=== PATIENT | female | born 1960 | race Caucasian/White ===

== ENCOUNTER 2025-05-24 08:24 | Emergency (ER) | payer MEDICARE, SELFPAY ==
[2025-05-24 08:25] VITALS: BP 170/96
--- NOTE | 2025-05-24 09:09 | ED.GENMED ---
History of Present Illness
General
Chief Complaint: Dizziness
Source: patient and spouse
Exam Limitations: none
Time Seen by Provider: 05/24/25 08:37
History of Present Illness
History of Present Illness:
Patient woke up in the middle the night. Her had gotten up to go to the bathroom. She woke up to go to the bathroom also. Upon sitting up she had severe vertigo. Also has had some mild vague neck discomfort. No double vision speech
issues or acute neurologic symptoms. Remote history of vertigo although this feels worse. Clearly positional. Worse with putting the head backward or forward. History of a tube in her left ear secondary to ear issues. Has been followed by ENT
for this
Past History
Past History
ED Past Medical History: Other (Lupus)
Review of Systems
Review of Systems
All Other Systems: Not applicable
Constitutional: Denies fever
Respiratory: Reports no symptoms
Cardiac: Reports no symptoms
Neurological: Denies headache, weakness or numbness
Phy Exam
Physical Exam
Physical Exam:
GENERAL: Alert and oriented in no apparent distress
EYE: Orbits normal. Extraocular muscles intact. No obvious nystagmus
NECK: Supple, no carotid bruit
ENT: Pharynx without erythema
CARDIAC: Regular rate and rhythm without any obvious murmurs.
LUNGS: Clear breath sounds,normal
ABDOMEN: Soft, without focal tenderness or distention
NEUROLOGICAL: Alert and oriented , cranial nerves II through XII intact. Speech normal. [id number] normal. Qrzv-[id number]-ifax normal.
SKIN: Warm and dry, no rash or lesion, no discoloration, skin intact.
MUSCULOSKELETAL: No edema,no deformity.Good color
PSYCH: Normal and appropriate interaction.
Course
Orders/Labs/Results
Orders:
Orders
05/24/25 08:55
CT Head & Neck Angio W/wo IV Urgent
Comment:
Reason For Exam: Neck pain/vertigo
Cardiac Monitoring- Treatment ONCE
IV Insert/Care/Rem.- Treatment PRN
0.9% Sodium Chloride 500 ml [Nss] 500 ml IV BOLUS
Meclizine [Antivert] 25 mg PO NOW STA
Pulse Ox/cont/shift [RESP] Stat
Quantity: 1
Physical Therapy Consult [Pt Eval And Treat] Urgent
Treatment: Severe vertigo
Activity Level: Out of Bed-Early Mobility
05/24/25 08:56
Electrocardiogram (*1) Stat
Reason for Study: Other
Other Reason for Exam: neuro symptoms
EKG- Treatment ONCE
05/24/25 09:19
Basic Metabolic Panel Urgent
Complete Blood Count/With Diff Urgent
Abnormal Lab Results
05/24/25
09:19
Hgb 11.4 L g/dL
(12.0-16.0)
Hct 34.7 L %
(37.0-47.0)
MCV 80.1 L fL
(81.0-99.0)
MCH 26.3 L pg
(27.0-31.0)
MCHC 32.9 L g/dL
(33.0-37.0)
RDW 15.1 H %
(11.5-14.5)
Absolute Lymphs (auto) 1.0 L 10^3/uL
(1.2-3.4)
Neutrophils % 82.2 H %
(42.2-75.2)
Lymphocytes % 12.8 L %
(20.5-51.1)
Glucose 128 H mg/dl
(70-99)
05/24/25 09:19
05/24/25 09:19
Vital Signs
Initial and Last Documented VS:
Initial Vital Signs
Temp Pulse Resp BP Pulse Ox
98.5 F 76 16 170/96 100
05/24/25 08:25 05/24/25 08:25 05/24/25 08:25 05/24/25 08:25 05/24/25 08:25
Last Documented Vital Signs
Temp Pulse Resp BP Pulse Ox
98.6 F 67 13 137/84 96
05/24/25 09:36 05/24/25 10:45 05/24/25 10:45 05/24/25 10:00 05/24/25 10:45
*Radiology
Radiology exam reviewed: radiology read reviewed (Negative CT angio)
*Pulse Oximetry
SaO2: 100
Oxygen Mode of Delivery: Room air
Patient hypoxic: no (100)
*EKG
Interpreted by ED Provider?: Yes
Interpretation: normal
Comparison EKG: no comparison EKG present
Heart Rate: 68
Rate: normal
Rhythm: sinus
[place]: normal axis
Interval: normal interval
QRS Pattern: normal QRS
Ischemia: no ischemia
*Critical Care Note
Total Time (30-74mins, 75-104mins- exclusive of procedures): Not Applicable
Update Note
Update Note:
Patient feeling much better. Seen by physical therapy. All consistent with BPPV. Discharged to follow-up
ED Attending Note
-
Portions of this chart may have been created with voice recognition software.� Occasional wrong word or��sound alike� substitutions may have occurred due to the inherent limitations of voice recognition software.
Discharge Plan
Departure
Patient Disposition: Home (Routine Discharge)
Date of Disposition: 05/24/25
Time of Disposition: 12:17
Patient with high blood pressure during this ER visit?: Yes
Discharge Problem:
Vertigo
Instructions: Vertigo (a Type of Dizziness) (DC), BLOOD PRESSURE
Prescriptions:
New
meclizine 25 mg tablet
25 mg PO TID PRN (Reason: dizziness) Qty: 14 0RF
Referrals:
Marry Maloney CRNP [Family Provider, General] - Follow up in 2-3 days
Interventions
Interventions:
*Risk Screen - Suicide Last Done: 05/24/25 09:36
*General Assessment Last Done: 05/24/25 09:36
*Neglect/Abuse Screening Last Done: 05/24/25 09:36
*ED- Fall Risk Assessment Last Done: 05/24/25 09:36
*ED COVID-19 Vaccine History Last Done: 05/24/25 09:36
ED- Neurological Assessment Last Done: 05/24/25 09:36
ED- Cardiac Assessment Last Done: 05/24/25 09:36
ED Swallowing Screen Last Done: 05/24/25 09:36
Discharge Date and Time
Print Language: CITIZEN [place]
[2025-05-24 09:19] VITALS: BP 155/90
[2025-05-24 09:30] VITALS: BMI 27.5
[2025-05-24] MEDS: NSS 500 IV (09:33)
[2025-05-24] MEDS: ANTIVERT 25 MG PO (09:33)
[2025-05-24 09:36] VITALS: BP 155/90
[2025-05-24 09:43] LABS: Hematocrit 34.7 % (37.0-47.0); Hemoglobin 11.4 g/dL (12.0-16.0); Mean Corp Hgb Conc. 32.9 g/dL (33.0-37.0); Mean Corpuscular Volume 80.1 fL (81.0-99.0); Nucleated Red Blood Cells % 0 %; Platelet Count 188 10^3/uL (130-400); Red Cell Dist. Width 15.1 % (11.5-14.5)
[2025-05-24 10:00] VITALS: BP 137/84
[2025-05-24 10:39] LABS: Blood Urea Nitrogen 16 mg/dl (7-17); Calcium 10.1 mg/dl (8.4-10.2); Carbon Dioxide 24 mmol/L (22-30); Chloride 106 mmol/L (98-107); Estimated Creatinine Clearance 93 ml/min; Glucose 128 mg/dl (70-99); Sodium 137 mmol/L (135-145); eGFR > 60.00
--- NOTE | 2025-05-24 11:40 | EDRN ---
physical therapy currently at the pts bedside
[2025-05-24 12:16] VITALS: BP 130/81; PULSE 78
== END 2025-05-24 12:32 | disposition home or self-care (01) ==
LOC: EMR 08:24
PROVIDERS: EMERGENCY PHYSICIAN Emergency Medicine; FAMILY PHYSICIAN Nurse Practitioner
DX: R42 Dizziness and giddiness (principal); M54.2 Cervicalgia; R03.0 Elevated blood-pressure reading, without diagnosis of hypertension; Z88.2 Allergy status to sulfonamides
CPT/HCPCS: 99285; 96361; 96360; 70496; 70498; 80048; 85025; 93005; Q9967

== ENCOUNTER 2025-06-02 07:40 | Outpatient (RCR) | payer MEDICARE, SELFPAY | END 2025-06-02 23:59 | disposition home or self-care (01) | LOC: RPT 07:40 | PROVIDERS: ATTENDING PHYSICIAN Nurse Practitioner | DX: H81.11 Benign paroxysmal vertigo, right ear (principal); Z73.6 Limitation of activities due to disability | CPT/HCPCS: 97161; 97530 ==